=== PATIENT | male | born 1970 | race African-American/Black ===

== ENCOUNTER 2019-07-02 10:29 | Emergency (ER) | payer BC ==
[~2019-07-02] VITALS: Ht 180.3 cm; Wt 115.7 kg
[2019-07-02] MEDS ORDERED: LISINOPRIL10 MG PO (10:35)
[2019-07-02] MEDS ORDERED: CYCLOBENZAPRINE10 MG PO (12:06)
[2019-07-02] MEDS ORDERED: NORCO 5-325 TA1 EAC1 PO (12:06)
[2019-07-02] MEDS ORDERED: MEDROLDOSEPACK PO (12:06)
[2019-07-02 12:13] VITALS: BP 135/84
== END 2019-07-02 12:13 | disposition home or self-care (01) ==
LOC: ER 10:29
DX: M51.26 Other intervertebral disc displacement, lumbar region (principal); M46.96 Unspecified inflammatory spondylopathy, lumbar region